=== PATIENT | female | born 1980 ===

== ENCOUNTER 2017-11-12 13:49 | Inpatient (IN) | payer OTHER ==
[~2017-11-12] VITALS: Ht 165.1 cm; Wt 103.4 kg
[2017-11-12 14:15] LABS: PLATELET COUNT, AUTOMATED 252 K/uL (150-450)
[2017-11-12] MEDS ORDERED: IOPAMIDOL 76% 100 ML INFUS BTL 100 ML ONE ×2 (14:17→15:54)
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
[2017-11-12 14:27] LABS: INR 1.02
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
[2017-11-12] MEDS ORDERED: DIPHTH/TETANUS/ACEL. PERTUSSIS IM ONLY ONE (15:05)
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
[2017-11-12] MEDS ORDERED: NS 0.9% 25 ML BAG 50 ML ONE (15:55)
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
[2017-11-12] MEDS ORDERED: ACETAMINOPHEN 325 MG TAB PO PRN (17:45)
[2017-11-12] MEDS ORDERED: ONDANSETRON 4 MG/2 ML VIAL IVP PRN (17:45)
[2017-11-12] MEDS ORDERED: APAP/HYDROCODONE 325/5 TAB PO PRN (17:45)
[2017-11-12] MEDS ORDERED: NALOXONE HCL 0.4 MG/ML VIAL IVP PRN (17:45)
[2017-11-12] MEDS ORDERED: RANI50VI5 PO (17:46)
[2017-11-12] MEDS ORDERED: GLIP-152 PO (17:47)
[2017-11-12] MEDS ORDERED: SERT-181 PO (17:47)
[2017-11-12] MEDS ORDERED: RANI-366 PO (17:49)
[2017-11-12] MEDS: KCL/D1/2NS 20 MEQ 1000 ML 1,000 ML IV PRN (18:06)
[2017-11-12 18:15] VITALS: BP 141/94
--- NOTE | 2017-11-12 18:58 | General Surgery Progress Note ---
Subjective Progress Notes Subjective feels better, no new areas of pain Physical Exam Vital Signs Date Time Temp Pulse Resp B/P (MAP) Pulse Ox O2 Delivery O2 Flow Rate FiO2 11/12/17 18:21 87 11/12/17 18:15 98.4 16 141/94 (110) 94 Room Air General Appearance: Alert, Awake, No Acute Distress, Afebrile Neuro: No Gross deficits, Other (GCS 15, speech clear and fluent) Eyes: PERRLA Cardiovascular: Normal Rhythm & Peripheral Pulses Respiratory: No Respiratory Distress, Clear to Auscultation GI: Soft and Non-Tender Musculoskeletal: No Weakness/Pain, Other (CMS intact X4) Extremities: Warm, Pulses, Perfused Integumentary: Skin Intact without Lesion / Mass Psych: Alert & Oriented X3, Appropriate Mood & Affect Result Diagram: 11/12/17 1306 11/12/17 1306 Monitor Interpretation: Normal Sinus Rhythm Assessment and Plan Problems: (1) Back pain Status: Acute Assessment & Plan: neuro intact, continue full spinal precautions. check stat CAP CT scan. FAST exam negative in ER Trauma bay. CT scan reveals T12 compression, with right superior facet fracture and L1 endplate fracture. Will ask Ortho spine to eval. Consider TLSO. PT/OT. Await Ortho spine eval. Plan as above. (2) LOC (loss of consciousness) Status: Acute Assessment & Plan: intact and non- focal at this time. check stat head and neck CT scan. MSE and speech improving throughout ER eval. Head and Neck CT negative. will check CTA head and neck to rule out vascular injury. Discussed pt with [facility] trauma team, no indication for transfer at this point. If CTA negative will admit for close monitoring, serial neuro checks. GCS 15. Neuro intact. no gross motor or sensory deficits noted. Time Spent: < 30 min Exam Sepsis Risk: No Definite Risk ZEINAB GUERRERO MD Nov 12, 2017 18:58
[2017-11-12 20:50] VITALS: BP 149/100
[2017-11-12] MEDS: FAMOTIDINE 20 MG TAB PO SCH (20:56)
[2017-11-12] MEDS: DOCUSATE SODIUM 100 MG CAP PO SCH (20:56)
[2017-11-12] MEDS ORDERED: ENOXAPARIN 40 MG/0.4ML SYR SC SCH (21:00)
[2017-11-12 22:34] VITALS: BP 161/94
[2017-11-13] MEDS: KCL/D1/2NS 20 MEQ 1000 ML 1,000 ML IV PRN (05:17)
[2017-11-13 05:18] VITALS: BP 157/101
[2017-11-13 05:48] LABS: PLATELET COUNT, AUTOMATED 176 K/uL (150-450)
[2017-11-13 07:56] VITALS: BP 139/98
--- NOTE | 2017-11-13 08:45 | General Surgery Progress Note ---
Subjective Progress Notes Subjective no complaints, no neuro complaints, no new areas of pain, asya liquids without NV Physical Exam Vital Signs Date Time Temp Pulse Resp B/P (MAP) Pulse Ox O2 Delivery O2 Flow Rate FiO2 11/13/17 07:56 97.7 80 14 139/98 (112) 94 Room Air General Appearance: Alert, Awake, No Acute Distress, Afebrile Neuro: No Gross deficits Eyes: PERRLA ENT: Normal Neck: No Masses, Other (non-tender, full AROM) Cardiovascular: Normal Rhythm & Peripheral Pulses, Regular Rate and Rhythm Respiratory: No Respiratory Distress, Clear to Auscultation Chest: No Masses, No Tenderness, Other GI: Soft and Non-Tender Musculoskeletal: No Weakness/Pain, Other (less tenderness at Lumbar spine, no step offs or deformity) Extremities: Soft and Non Tender, Warm, Pulses, Perfused Integumentary: Skin Intact without Lesion / Mass Psych: Alert & Oriented X3, Appropriate Mood & Affect, Other Result Diagram: 11/13/1734 11/13/17 0534 Monitor Interpretation: Normal Sinus Rhythm Assessment and Plan Problems: (1) Back pain Status: Acute Assessment & Plan: neuro intact, continue full spinal precautions. check stat CAP CT scan. FAST exam negative in ER Trauma bay. CT scan reveals T12 compression, with right superior facet fracture and L1 endplate fracture. Will ask Ortho spine to eval. Consider TLSO. PT/OT. Await Ortho spine eval. Plan as above. Discussed with Dr Jarquin spine surgeon this am. Will place TLSO and mobilize with PT/OT. (2) LOC (loss of consciousness) Status: Acute Assessment & Plan: intact and non- focal at this time. check stat head and neck CT scan. MSE and speech improving throughout ER eval. Head and Neck CT negative. will check CTA head and neck to rule out vascular injury. Discussed pt with [facility] trauma team, no indication for transfer at this point. If CTA negative will admit for close monitoring, serial neuro checks. GCS 15. Neuro intact. no gross motor or sensory deficits noted. TBI DC teaching done with regards to brain rest. Will follow up with PCP in [place]. Possible DC later this afternoon. Time Spent: > 30 min Exam Sepsis Risk: No Definite Risk ZEINAB GUERRERO MD Nov 13, 2017 08:45
[2017-11-13] MEDS: FAMOTIDINE 20 MG TAB PO SCH (09:07)
[2017-11-13] MEDS: DOCUSATE SODIUM 100 MG CAP PO SCH (09:07)
--- NOTE | 2017-11-13 09:29 | Hospitalist Depart ---
Discharge Summary Reason for Hosp/Final Diag: (1) Back pain Status: Acute Hospital Course & Plan: neuro intact, continue full spinal precautions. check stat CAP CT scan. FAST exam negative in ER Trauma bay. CT scan reveals T12 compression, with right superior facet fracture and L1 endplate fracture. Will ask Ortho spine to eval. Consider TLSO. PT/OT. Await Ortho spine eval. Plan as above. Discussed with Dr Jarquin spine surgeon this am. Will place TLSO and mobilize with PT/OT. (2) LOC (loss of consciousness) Status: Acute Hospital Course & Plan: intact and non- focal at this time. check stat head and neck CT scan. MSE and speech improving throughout ER eval. Head and Neck CT negative. will check CTA head and neck to rule out vascular injury. Discussed pt with [facility] trauma team, no indication for transfer at this point. If CTA negative will admit for close monitoring, serial neuro checks. GCS 15. Neuro intact. no gross motor or sensory deficits noted. TBI DC teaching done with regards to brain rest. Will follow up with PCP in [place]. Possible DC later this afternoon. Departure Weight (Pounds): 228 Result Diagram: 11/13/1734 11/13/17533 Condition: Improved Discharge: Home Discharge Code Status: Full Code Time Spent: > 30 min Discharge Instructions Home Meds Reported Medications Ranitidine Hcl (ZANTAC) 150 Mg Tablet, 75 MG PO QDAY, TAB 11/12/17 Glipizide (GLIPIZIDE) 5 Mg Tablet, PO 11/12/17 Sertraline Hcl (SERTRALINE HCL) 100 Mg Tablet, 1 TAB PO QDAY, TAB 11/12/17 Discontinued Reported Medications Ranitidine Hcl (ZANTAC) 50 Mg/2 Ml Vial, 75 MG PO, VIAL 11/12/17 Venous Thromboembolism VTE Risk Physician Assess for VTE Risk: Yes Patient's VTE Risk: Low VTE Diagnostic Test 2 Days Prior to Admit: No Antithrombotics Is Pt On Any Antithrombotics?: No Prophylaxis Tx Contraindicated Pharmacological Contraindicati: Comfort Measure Mechanical Contraindications: Pt at Low Risk for VTE ZEINAB GUERRERO MD Nov 13, 2017 09:28
[2017-11-13 10:36] VITALS: Ht 165.1 cm; Wt 103.4 kg
[2017-11-13 11:35] VITALS: BP 119/73
== END 2017-11-13 17:20 | disposition home or self-care (01) | DRG 552 ==
LOC: EDBD 14:13 → ER 14:13 → MED 17:23
PROVIDERS: ADMIT Surgery; ATTEND Surgery
DX: S22.080A Wedge compression fracture of T11-T12 vertebra, initial encounter for closed fracture (principal); S32.018A Other fracture of first lumbar vertebra, initial encounter for closed fracture; S06.899A Other specified intracranial injury with loss of consciousness of unspecified duration, initial encounter; E11.9 Type 2 diabetes mellitus without complications; R40.2422 Glasgow coma scale score 9-12, at arrival to emergency department; V43.53XA Car driver injured in collision with pick-up truck in traffic accident, initial encounter; Y93.89 Activity, other specified; Y92.410 Unspecified street and highway as the place of occurrence of the external cause; Y99.8 Other external cause status; Z88.8 Allergy status to other drugs, medicaments and biological substances; Z23 Encounter for immunization
CPT/HCPCS: 36415; 36416; 70450; 70496; 70498; 71045; 71260; 72125; 72129; 72132; 74177; 80320; 81001; 82040; 82247; 82310; 82374; 82435; 82565; 82947; 82948; 84075; 84132; 84155; 84295; 84450; 84460; 84520; 85025; 85610; 85730; 86850; 86900; 86901; 90715; 97161; 97165; J1650; J3480; Q9967

== ENCOUNTER → 2017-11-12 | Outpatient (CLI) | payer OTHER ==
[~2017-11-12] MED LIST: GLIP-152 PO; RANI-366 PO; RANI50VI5 PO; SERT-181 PO
[2017-11-13 10:36] VITALS: BMI 37.9
== END ==
LOC: AMB 13:28
PROVIDERS: ATTEND Nurse Practitioner
DX: R41.82 Altered mental status, unspecified (principal); R10.12 Left upper quadrant pain; R55 Syncope and collapse; V43.52XA Car driver injured in collision with other type car in traffic accident, initial encounter; Y92.413 State road as the place of occurrence of the external cause
CPT/HCPCS: A0425; A0427